=== PATIENT | female | born 1975 | race Caucasian/White ===

== ENCOUNTER 2016-12-20 14:09 | Emergency (ER) | payer MEDICAID ==
[~2016-12-20] VITALS: Ht 165.1 cm; Wt 75.0 kg
[2016-12-20 14:23] VITALS: Ht 165.1 cm; Wt 75.0 kg
[2016-12-20] MEDS ORDERED: IBUPROFEN 600 MG TAB PO ONE (15:00)
[2016-12-20 15:11] LABS: URINE BLOOD (Dip) POC Trace-intact (NEGATIVE)
[2016-12-20 15:19] LABS: ADD SCAN DIFF NO
--- NOTE | 2016-12-20 15:20 | ERD ---
ER Documentation Chief Complaint Date/Time DATE: 12/20/16 TIME: 15:15 Chief Complaint PELVIC PAIN X 3 WEEKS WITH SCANT BLEEDING HPI This is a 41-year-old female, A3, with last menstrual period 1 week ago presents emergency department with pelvic pain and vaginal bleeding. Patient states she has had intermittent scant vaginal bleeding with left-sided pelvic pain over the past 3 weeks. Patient rates pain 2/10. Patient states pain does not radiate. No upper abdominal pain. No back or flank pain. Patient has had 3 ectopic pregnancies in the past with last one about 1 year ago. Patient has had one fallopian tube removed with her first ectopic . With patient' s 2 subsequent ectopic pregnancies patient was treated with medication. Patient denies any nausea, vomiting or diarrhea. No dysuria or hematuria. No fevers or chills. 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 ROS All systems reviewed and are negative except as per history of present illness. Medications Home Meds Active Scripts Ibuprofen* (Motrin*) 600 Mg Tab, 600 MG PO Q6, #15 TAB Prov:JORDANCINDI NP 12/20/16 Allergies Allergies: Coded Allergies: No Known Allergy (Unverified , 06/11/15) PMhx/Soc History of Surgery: No Anesthesia Reaction: No Hx Neurological Disorder: No Hx Respiratory Disorders: No Hx Cardiac Disorders: No Hx Psychiatric Problems: No Hx Miscellaneous Medical Probl: No Hx Alcohol Use: No Hx Substance Use: No Hx Tobacco Use: No Smoking Status: Never smoker Physical Exam Vitals Vital Signs Date Time Temp Pulse Resp B/P Pulse Ox O2 Delivery O2 Flow Rate FiO2 12/20/16 14:23 98.1 88 18 132/61 100 Physical Exam Const: No acute distress, alert Head: Atraumatic Eyes: Normal Conjunctiva ENT: Normal External Ears, Nose and Mouth. Neck: Full range of motion..~ No meningismus. Resp: Clear to auscultation bilaterally. No wheezing, rhonchi or crackles. Cardio: Regular rate and rhythm, no murmurs Abd: Soft, non tender, non distended. Normal bowel sounds. negative Loco sign. Negative rebound tenderness. Skin: No petechiae or rashes Back: No midline or flank tenderness. No CVA tenderness Ext: No cyanosis, or edema Neur: Awake and alert Psych: Normal Mood and Affect Result Diagram: 12/20/16 1500 12/20/16 1500 Results 24 hrs Laboratory Tests Test 12/20/16 15:00 12/20/16 15:17 White Blood Count 9.710^3/ul Red Blood Count 4.6210^6/ul Hemoglobin 14.2g/dl Hematocrit 42.7% Mean Corpuscular Volume 92.4fl Mean Corpuscular Hemoglobin 30.7pg Mean Corpuscular Hemoglobin Concent 33.3g/dl Red Cell Distribution Width 11.9% Platelet Count 84846^3/UL Mean Platelet Volume 10.6fl Neutrophils % 60.6% Lymphocytes % 29.1% Monocytes % 7.2% Eosinophils % 2.2% Basophils % 0.5% Nucleated Red Blood Cells % 0.0/100WBC Neutrophils # 5.910^3/ul Lymphocytes # 2.810^3/ul Monocytes # 0.710^3/ul Eosinophils # 0.210^3/ul Basophils # 0.110^3/ul Nucleated Red Blood Cells # 0.010^3/ul Sodium Level 144mmol/L Potassium Level 4.2mmol/L Chloride Level 102mmol/L Carbon Dioxide Level 28mmol/L Anion Gap 18 Blood Urea Nitrogen 15mg/dl Creatinine 0.82mg/dl Glucose Level 87mg/dl Calcium Level 9.5mg/dl Total Bilirubin 0.3mg/dl Direct Bilirubin 0.00mg/dl Indirect Bilirubin 0.3mg/dl Aspartate Amino Transf (AST/SGOT) 20IU/L Alanine Aminotransferase (ALT/SGPT) 32IU/L Alkaline Phosphatase 93IU/L Total Protein 7.4g/dl Albumin 4.2g/dl Globulin 3.20g/dl Albumin/Globulin Ratio 1.31 Lipase 55U/L Bedside Urine pH (LAB) 5.5 Bedside Urine Protein (LAB) Negative Bedside Urine Glucose (UA) Negative Bedside Urine Ketones (LAB) Negative Bedside Urine Blood Trace-intact Bedside Urine Nitrite (LAB) Negative Bedside Urine Leukocyte Esterase (L Negative Current Medications Medications (Trade) Dose Ordered Sig/Taty Route PRN Reason Start Time Stop Time Status Last Admin Dose Admin Ibuprofen (Motrin) 600 mg ONCE ONCE PO 12/20/16 15:00 12/20/16 15:01 DC 12/20/16 15:26 Procedures/MDM [place] [id number] Radiology Main Line: [phone] DIAGNOSTIC IMAGING REPORT Patient: KARLA DANIELS : 1975 Age: 41 Sex: F MR #: [id number] DOS: 12/20/16 1458 Ordering MD: CINDI ORTEGA NP Location: FTE Room/Bed: PROCEDURE: US Pelvis CLINICAL INDICATION: Abdominal Pain TECHNIQUE: Multiple sonographic images of the pelvis were obtained utilizing a transabdominal and endovaginal technique. The images were reviewed on a PACS workstation. COMPARISON: None LMP: 12/13/2016 FINDINGS: The uterus measures 6.9 x 4.3 x 4.9 cm. The endometrial echo complex measures 3 mm in thickness. A sub-centimeter Nabothian cyst is identified. The uterus is heterogeneous and the junctional zone between the endometrium and myometrium is indistinct. There is a 1.7 cm anterior intramural fibroid at the level of the upper body, to the right of midline. The right ovary measures 3.2 x 1.8 x 1.9 cm. The left ovary is not visualized. There is normal vascular flow in the right ovary. There is a 1.7 cm complex cystic lesion with heterogeneous internal echoes in the right ovary which is likely a hemorrhagic/corpus luteal cyst. No significant pelvic free fluid is identified. IMPRESSION: 1.7 cm uterine fibroid. The uterus is heterogeneous and the junctional zone between the endometrium and myometrium is indistinct. Clinical correlation for adenomyosis is recommended. 1.7 cm complex cystic lesion in the right ovary is likely a hemorrhagic/corpus luteal cyst. Nonvisualization of the left ovary. MDM: 41-year-old female who presents the emergency department with left-sided pelvic pain with intermittent scant vaginal bleeding 3 weeks. Patient states her last menstrual period was 1 week ago. Patient has a history of 3 ectopic pregnancies in the past with last ectopic about 1 year ago. Patient has had one fallopian tube removed. Patient is unsure which fallopian tube was removed. No fevers or chills. No active vomiting or diarrhea. Urine dip shows trace blood otherwise negative. Urine is negative. Labs show no significant anemia, infection or electrolyte imbalance. Pelvic ultrasound reviewed by radiologist shows 1.7 cm uterine fibroid. Uterus is heterogeneous and junctional zone between the endometrium and myometrium is indistinct. A 1.7 cm complex cystic lesion in the right ovary likely a hemorrhagic, or corpus luteal cyst. No active vomiting or diarrhea on the ED. No fevers or chills. Vital signs remained stable. Differential diagnosis includes but not limited to acute appendicitis, diverticulitis, diverticulosis, bowel obstruction, constipation, infectious colitis, irritable bowel syndrome, inflammatory bowel disease, viral gastroenteritis, abdominal aortic aneurysm, food intolerance, celiac disease, UTI, pyelonephritis, nephrolithiasis, acute urinary retention or colorectal cancer. I doubt any emergent conditions such as appendicitis, diverticulitis, bowel obstruction, abdominal aortic aneurysm at this time due to normal vital signs and normal lab results. Patient is appropriate for outpatient management will be given prescription for ibuprofen. Instructed patient to follow-up with primary care provider in the next 2-3 days for reassessment and additional management. Return to ED for any high fever, chest pain, difficulty breathing, shortness breath, wheezing, vomiting, diarrhea, abdominal pain or any new or worsening symptoms. Patient verbalizes understanding. All questions answered at discharge. Pakistani translation used during this encounter. Departure Diagnosis: Primary Impression: Acute pain in female pelvis Condition: Stable CINDI ORTEGA NP Dec 20, 2016 15:20
[2016-12-20 15:37] LABS: ALBUMIN 4.2 g/dl (3.3-4.9); ALBUMIN/GLOBULIN RATIO 1.31; BILIRUBIN,INDIRECT 0.3 mg/dl (0-1.1); BILIRUBIN,TOTAL 0.3 mg/dl (0.2-1.3); CALCIUM 9.5 mg/dl (8.4-10.2); CREATININE 0.82 mg/dl (0.44-1.00); POTASSIUM 4.2 mmol/L (3.5-5.1); TOTAL PROTEIN 7.4 g/dl (6.1-8.1)
[2016-12-20 15:42] LABS: BASOPHIL # 0.1 10^3/ul (0.0-0.1); BASOPHILS % 0.5 % (0.0-2.0); EOSINOPHILS # 0.2 10^3/ul (0.0-0.5); EOSINOPHILS % 2.2 % (0.0-7.0); HEMATOCRIT 42.7 % (37.0-47.0); HEMOGLOBIN 14.2 g/dl (12.0-16.0); LYMPHOCYTES # 2.8 10^3/ul (0.8-2.9); LYMPHOCYTES % 29.1 % (15.0-51.0); MEAN CORPUSCULAR HEMOGLOBIN 30.7 pg (29.0-33.0); MEAN CORPUSCULAR HGB CONC 33.3 g/dl (32.0-37.0); MEAN CORPUSCULAR VOLUME 92.4 fl (82.0-101.0); MEAN PLATELET VOLUME 10.6 fl (7.4-10.4); MONOCYTE # 0.7 10^3/ul (0.3-0.9); MONOCYTES % 7.2 % (0.0-11.0); NEUTROPHIL # 5.9 10^3/ul (1.6-7.5); NEUTROPHILS % 60.6 % (39.0-77.0); PLATELET COUNT 215 10^3/UL (140-415); RED BLOOD COUNT 4.62 10^6/ul (4.20-5.40); RED CELL DISTRIBUTION WIDTH 11.9 % (11.5-14.5); WHITE BLOOD COUNT 9.7 10^3/ul (4.8-10.8)
--- NOTE | 2016-12-20 16:16 | RADRPT ---
PROCEDURE: US Pelvis CLINICAL INDICATION: Abdominal Pain TECHNIQUE: Multiple sonographic images of the pelvis were obtained utilizing a transabdominal and endovaginal technique. The images were reviewed on a PACS workstation. COMPARISON: None LMP: 12/13/2016 FINDINGS: The uterus measures 6.9 x 4.3 x 4.9 cm. The endometrial echo complex measures 3 mm in thickness. A sub-centimeter Nabothian cyst is identified. The uterus is heterogeneous and the junctional zone between the endometrium and myometrium is indist inct. There is a 1.7 cm anterior intramural fibroid at the level of the upper body, to the right of midlin e. The right ovary measures 3.2 x 1.8 x 1.9 cm. The left ovary is not visualized. There is normal vascu lar flow in the right ovary. There is a 1.7 cm complex cystic lesion with heterogeneous internal echoes in the right ovary which is likely a hemorrhagic/corpus luteal cyst. No significant pelvic free fluid is identified. IMPRESSION: 1.7 cm uterine fibroid. The uterus is heterogeneous and the junctional zone between the endometrium and myometrium is indist inct. Clinical correlation for adenomyosis is recommended. 1.7 cm complex cystic lesion in the right ovary is likely a hemorrhagic/corpus luteal cyst. Nonvisualization of the left ovary. RPTAT: EE Physician Cherelle Date Time Electronically viewed and signed by Physician Cherelle on 12/20/2016 16:15 /
[2016-12-20] MEDS ORDERED: IBUP-1542 PO (16:41)
== END 2016-12-20 16:57 | disposition home or self-care (01) ==
LOC: FTE 14:09
DX: R10.2 Pelvic and perineal pain (principal)
CPT/HCPCS: 36415; 76830; 76856; 80053; 81003; 83690; 85025; Z7502; Z7610

== ENCOUNTER 2018-08-13 10:07 | Emergency (ER) | payer MEDICAID ==
[~2018-08-13] VITALS: Wt 78.4 kg
[~2018-08-13 10:07] MED LIST: IBUP-1542 PO
--- NOTE | 2018-08-13 12:20 | ERD ---
ER Documentation Chief Complaint Chief Complaint CHEST PAIN, LEFT ARM PAIN, SOB, ONSET 5 DAYS, PMD REFERAL HPI This is a 43-year-old female with a past medical history of NC who is presenting with 5 days of nonexertional chest pain radiating into the left arm and associated shortness of breath. The patient has also been intermittently lightheaded and nauseous, but she denies these things presently. She denies diaphoresis. She does not endorse any alleviating or exacerbating factors. The patient reports that her symptoms were nonexertional, started at rest. She does endorse significant stress and anxiety at home, but the pain sometimes comes on even without feeling anxious. She does not feel that her pain is worse with movement of her left arm and shoulder. She currently reports a tingling and sleepy sensation to her left arm. The patient saw her primary care physician 2 days ago for the pain who was concerned based on her history and referred her to cardiology. The patient denies feeling sick recently. The patient denies fever or chills. The patient has had no headache or vision changes. The patient does not endorse neck or back pain. The patient denies abdominal pain. The patient denies changes to bowel movements or urination. The patient has had no focal deficits. The patient has had no weakness or numbness or tingling to the face or extremities. ROS All systems reviewed and are negative except as per history of present illness. Medications Home Meds Reported Medications Aspirin* (Aspirin* EC) 325 Mg Tab, 325 MG PO DAILY PRN for PRN, TAB 08/13/18 Discontinued Scripts Ibuprofen* (Motrin*) 600 Mg Tab, 600 MG PO Q6, #15 TAB Prov:CINDI ORTEGA NP 12/20/16 Allergies Allergies: Coded Allergies: No Known Allergy (Unverified , 08/13/18) PMhx/Soc History of Surgery: No Anesthesia Reaction: No Hx Neurological Disorder: No Hx Respiratory Disorders: No Hx Cardiac Disorders: Yes (Reported previous NC) Hx Psychiatric Problems: No Hx Miscellaneous Medical Probl: No Hx Alcohol Use: No Hx Substance Use: No Hx Tobacco Use: No FmHx Family History: No diabetes Physical Exam Vitals Vital Signs Date Temp Pulse Resp B/P (MAP) Pulse Ox O2 O2 Flow FiO2 Time Delivery Rate 08/13/18 73 16 116/75 100 Room Air 13:59 (89) 08/13/18 97.5 87 17 135/70 100 10:09 (91) Physical Exam Const: No apparent distress, well-developed, well-nourished Head: Normocephalic, Atraumatic Eyes: Normal Conjunctiva. Extraocular movements intact. Pupils equal, round and reactive to light ENT: Normal External Ears, Nose and Mouth. Neck: Full range of motion. No meningismus. Resp: Clear to auscultation bilaterally, No wheezes, rales or rhonchi Cardio: Regular rate and rhythm. No murmurs, rubs or gallops Abd: Soft, non tender, non distended. Normal bowel sounds Skin: No petechiae or rashes Back: No midline tenderness. No CVA tenderness Ext: No cyanosis, or edema Neur: Awake and alert, oriented 4. Cranial nerves intact. No facial droop. Normal strength, sensation and coordination. Psych: Normal Mood and Affect Result Diagram: 08/13/18 1225 08/13/18 1225 Results 24 hrs Laboratory Tests Test 08/13/18 12:25 08/13/18 15:39 White Blood Count 10.4 10^3/ul Red Blood Count 4.42 10^6/ul Hemoglobin 13.7 g/dl Hematocrit 41.7 % Mean Corpuscular Volume 94.3 fl Mean Corpuscular Hemoglobin 31.0 pg Mean Corpuscular Hemoglobin Concent 32.9 g/dl Red Cell Distribution Width 12.4 % Platelet Count 232 10^3/UL Mean Platelet Volume 9.8 fl Immature Granulocytes % 0.300 % Neutrophils % 62.9 % Lymphocytes % 27.7 % Monocytes % 6.4 % Eosinophils % 2.2 % Basophils % 0.5 % Nucleated Red Blood Cells % 0.0 /100WBC Immature Granulocytes # 0.030 10^3/ul Neutrophils # 6.5 10^3/ul Lymphocytes # 2.9 10^3/ul Monocytes # 0.7 10^3/ul Eosinophils # 0.2 10^3/ul Basophils # 0.1 10^3/ul Nucleated Red Blood Cells # 0.0 10^3/ul Prothrombin Time 12.0 Sec Prothrombin Time Ratio 0.9 INR International Normalized Ratio 0.88 Sodium Level 142 mmol/L Potassium Level 4.1 mmol/L Chloride Level 106 mmol/L Carbon Dioxide Level 26 mmol/L Anion Gap 10 Blood Urea Nitrogen 12 mg/dl Creatinine 0.74 mg/dl Est Glomerular Filtrat Rate mL/min > 60 mL/min Glucose Level 93 mg/dl Calcium Level 9.0 mg/dl Troponin I < 0.012 ng/ml < 0.012 ng/ml B-Type Natriuretic Peptide 21 PG/ML Creatine Kinase 74 IU/L Creatine Kinase Index 1.1 Creatinine Kinase MB (Mass) 0.82 ng/ml Current Medications Medications Dose Sig/Taty Start Time Status Last (Trade) Ordered Route PRN Stop Time Admin Dose Reason Admin Ketorolac 15 mg ONCE STAT 08/13/18 DC Tromethamine IV 13:32 (Toradol) 08/13/18 13:33 Procedures/MDM MDM The patient's presentation warrants further investigation. Previous medical records, if available, were reviewed. LABS The patient's laboratory testing was obtained and reviewed. No emergent treatment was required unless described below. CBC: No E/o systemic infection or severe anemia or thrombocytopenia Chemistry: No E/o severe acidosis or alkalosis or renal failure or liver disease or diabetic ketoacidosis PT/INR: No E/o significant coagulopathy Troponin: No E/o acute ischemia x 2 CKMB: Negative EKG EKG read by me: Rate/Rhythm: Regular rate and rhythm at a rate of 89 bpm Intervals: Normal [place]: Normal Impression: No evidence of acute ischemia or arrhythmia IMAGING Imaging and Radiology interpretation reviewed. CXR FINDINGS: The heart and mediastinum are within normal limits. The lungs are clear. There is no pleural effusion or pneumothorax. IMPRESSION: No acute disease. Electronically viewed and signed by .Hira Thorpe MD, MD on 08/13/2018 12:43 TREATMENT/DISPOSITION The patient presents with chest pain and paresthesias into the left arm. The patient symptoms have been on and off for the last 5 days. The etiology is unclear. The patient endorses significant stress and anxiety. Anxiousness is certainly a possibility of her symptoms, but this is a diagnosis of exclusion. The patient is very well-appearing with a reassuring exam. That said, she has a reported history of an NC in the past, and a full cardiac workup was completed. The patient's EKG is normal. The patient's cardiac markers were trended and were also found to be normal. I have low suspicion for a cardiac pathology. The patient's heart score at this time is to. The patient's chest xray does not reveal pneumonia or pneumothorax or pleural effusions or pulmonary edema. The patient does not have a widened mediastinum and does not have signs or symptoms concerning for thoracic aortic aneurysm or dissection. The patient does not have pneumomediastinum or signs concerning for esophageal tear or rupture. The patient has no clinical or radiographic signs of pericardial effusion or tamponade. The patient does not have pneumoperitoneum and I have decreased suspicion of viscus perforation as possible referred pain. The patient does not have a history of heart failure and I have low suspicion for this. The patient does not have a diagnosis of COPD and is not wheezing today. The patient is not tachypneic or hypoxic. The patient is breathing comfortably and without pleuritic pain. The patient is not on hormonal therapy. The patient has no history of clotting or bleeding disorders. The patient has no calf tenderness. The patient has had no hemoptysis. I have decreased suspicion for PE. The patient's troponin and EKG are reassuring. I have low suspicion for acute coronary syndrome. The patient was treated with Toradol. DISCHARGE The patient's HEART score is equal to or less than 3. This stratifies the patient into the low risk (<1%) group for an major adverse cardiac event within the next 30 days. Shared decision making was enacted. The risks and benefits of admission and discharge were discussed with the patient and it was ultimately decided that the patient would be discharged with close outpatient follow up and evaluation for functional testing within 72 hours. Upon reevaluation of the patient, symptoms have improved. No emergent diagnoses were identified. At this time, I feel that the patient stable for discharge. The patient was instructed to follow-up with a primary care physician in 1-3 days. The patient will be given strict precautions with which to return to the emergency department. Prescriptions: None The patient's blood pressure was elevated at greater than 120/80 while in the emergency department. The patient was otherwise stable with no evidence of hypertensive urgency or emergency. The patient does not require admission for blood pressure control. I have discussed with the patient the risks of hypertension. I have instructed the patient to return to the ER for any new or worsening symptoms including chest pain, shortness of breath, headache, blurred vision, confusion, nausea, vomiting or LOC. I have advised the patient to follow up with the primary care physician for outpatient monitoring and treatment for hypertension in 1-3 days. Disclaimer: Inadvertent spelling and grammatical errors are likely due to EHR/dictation software use and do not reflect on the overall quality of patient care. Note that the electronic time recorded on this note does not necessarily reflect the actual time of the patient encounter. Departure Diagnosis: Primary Impression: Nonspecific chest pain Additional Impressions: SOB (shortness of breath) Paresthesia Condition: Stable Patient Instructions: Chest Pain, Uncertain Cause, Paraesthesias Additional Instructions: Thank you for for coming to [facility] for your care today. Please ask your nurse or provider if you have questions about your care today and do not leave until all your questions have been answered. Please use any medications given as directed and follow-up with your doctor (or the doctor you were referred to) in the next 1-3 days. If you do not have a primary care doctor you may follow up at the [facility] or [facility] (listed below). You may also use motrin and tylenol as needed for fever and/or pain unless instructed otherwise by your provider or nurse. Indications for more urgent follow-up have been discussed, but you may return to the Emergency Department at ANY time for any worrisome or worsening symptoms. If you have abdominal pain, please know that no test or exam you received is perfect and you should follow up within 8 hours for continued pain. If you had any imaging studies today, such as an X-Ray or CT Scan, these studies will be reviewed later by a radiologist. You will be called if there are important findings that were not identified today, so make sure the contact information you provided at registration is correct. If you received any narcotic pain control medicine today, such as Vicodin, Morphine or Dilaudid, your coordination and judgment may be affected for a number of hours. Please do not drive or operate heavy machinery, and you may want someone to assist you at home. If you were given a prescription for narcotic medication, be aware that it is very addictive- use sparingly and only if necessary. PLEASE SEEK FURTHER EVALUATION AND MANAGEMENT AT YOUR DOCTORS OFFICE WITHIN THE NEXT 1-3 DAYS. IT IS YOUR RESPONSIBILITY TO MAKE AN APPOINTMENT FOR FOLOW-UP CARE. IF YOU HAVE A PRIMARY DOCTOR, PLEASE CALL THEIR OFFICE TO SCHEDULE AN APPO INTMENT FOR FOLLOW UP. IF YOU DO NOT HAVE A PRIMARY DOCTOR YOU CAN CALL OUR PHYSICIAN REFERRAL HOTLINE AT IF YOU CAN NOT AFFORD TO SEE A PHYSICIAN YOU CAN CHOSE FROM THE FOLLOWING FORMERLY [facility] & [facility] CLINICS: [facility] [address] [facility] [address] [facility] [address] [facility] [address] [facility] [address] [facility]. [facility]. [address] GETACHEW HAWLEY MD Aug 13, 2018 12:20
[2018-08-13] MEDS ORDERED: KETOROLAC 15 MG INJ IV STA (13:32)
[2018-08-13] MEDS ORDERED: ASPI325T32 PO (14:02)
[2018-08-13 16:30] VITALS: BP 110/70; PULSE 78; RESP 16
== END 2018-08-13 17:04 | disposition home or self-care (01) ==
LOC: E/R 10:07
DX: R07.9 Chest pain, unspecified (principal); R06.02 Shortness of breath; R20.2 Paresthesia of skin; I25.2 Old myocardial infarction
CPT/HCPCS: 36415; 71045; 80048; 82550; 82553; 83880; 84484; 85025; 85610; 93005; Z7502